=== PATIENT | female | born 1970 | race Caucasian/White ===

== ENCOUNTER 2024-05-31 17:53 | Emergency (ER) | payer OTHER, SELFPAY ==
--- NOTE | ~2024-05-31 | XR_ITS ---
EXAMINATION: XR chest 2V DATE: 05/31/2024 19:33 INDICATION: Cough and congestion. TECHNIQUE: Frontal and lateral views of the chest were obtained on 3 radiographs. COMPARISON: None. FINDINGS: There is no pneumonia, pleural effusion, or pneumothorax. The heart size is normal. Surgica l clips in the right upper quadrant are likely from cholecystectomy. There is mild chronic anterior w edging of a lower thoracic vertebral body. IMPRESSION: 1. No acute cardiopulmonary disease. Reviewed, dictated and finalized at location A. [facility] [employer]
--- OUTSIDE RECORDS SUMMARY | 2024-05-31 17:55 | XMS_ITS | Referral Summary ---
Author Organization [facility] Address [address] [place] [address] Care Team Providers Care Manager Mobile Name Role Phone Craig Becerra MD Primary Care Provider [phone] [facility],non-owned Affiliates and Associated Physician Practices is amultiple site organization consisting of ambulatory clinics and hospital sitesin [place], [place], [place] and [place]. This disclosure is being madepursuant to the Care Everywhere program and may not contain all information available regarding this patient. Last updated 18.[facility] Allergies No known active allergies Medications * Be aware that medications may not be up to date on this document. Alwaysverify current medications with the patient. Medication Sig Dispensed Refills Start Date End Date Status cefUROXime (CEFTIN) 250 MG tablet Take 1 tablet by mouth at bedtime 30 tablet 1 01/12/2019 Active imipramine (TOFRANIL) 10 MG tablet Take 1 tablet by mouth at bedtime Take 2 tablets every night at bedtime - please make an appt for future refills 60 tablet 09/01/2019 Active Active Problems Problem Noted Date Diagnosed Date ANIKET (stress urinary incontinence, female) 2018 Social History Tobacco Use Types Packs/Day Years Used Date Smoking Tobacco: Never Smokeless Tobacco: Never Alcohol Use Standard Drinks/Week Comments Not Currently 0 (1 standard drink = 0.6 oz pur e alcohol) Sex and Gender Information Value Date Recorded Sex Assigned at Not on file Gender Identity Not on file Sexual Orientation Not on file Last Filed Vital Signs Vital Sign Reading Time Taken Comments Blood Pressure 118/70 01/12/2019 10:51 AM CDT Pulse - - Temperature - - Respiratory Rate - - Oxygen Saturation - - Inhaled Oxygen Concentration - - Weight 103.4 kg (228 lb) 01/12/2019 10:51 AM CDT Height 163.8 cm (5' 4.5 ) 01/12/2019 10:51 AM CD T Body Mass Index 38.53 01/12/2019 10:51 AM CDT Plan of Treatment Not on file Care Teams Manager Mobile Relationship Specialty Start Date End Date Craig Becerra MD [address] [place] [id number] PCP - General 12/22/18
--- OUTSIDE RECORDS SUMMARY | 2024-05-31 17:55 | XMS_ITS | Clinical Summary ---
Author Organization [facility] Address [address] [place] [address] Care Team Providers Care Saddle Maker Name Role Phone Craig Becerra MD Primary Care Provider [phone] Source Comments [facility],non-owned Affiliates and Associated Physician Practices is amultiple site organization consisting of ambulatory clinics and hospital sitesin [place], [place], [place] and [place]. This disclosure is being madepursuant to the Care Everywhere program and may not contain all information available regarding this patient. Last updated 18.[employer] Allergies No known active allergies Medications * [...] Date ANIKET (stress urinary incontinence, female) 2018 Family History Medical History Relation Name Comments CAD (Coronary Artery Disease) Father Hypertension Father Hypertension Mother CAD (Coronary Artery Disease) Sister Diabetes - Type 2 Sister Hypertension Sister Relation Name Status Comments Father Mother Sister Social History Tobacco Use Types Packs/Day Years [...] 01/12/2019 10:51 AM CDT Plan of Treatment Health Maintenance Due Date Last Done Comments COLOGUARD (AGES 45-75) - COL ON CA SCREENING 1972 COLON MONITORING 1972 COLONOSCOPY - COLON CA SCREENING 1972 CT COLONOGRAPHY - COLON CA SCREENING 1972 Colorectal Cancer Screening 1972 FIT - COLON CA SCREENING 1972 FLEX SIG - COLON CA SCREENING 1972 LIPID TESTING 1972 MAMMOGRAM 1972 PAP SMEAR 1972 HIV SCREENING 10/26/1987 HEPATITIS C SCREENING 10/21/1990 DTAP/TDAP/TD VACCINES (1 - Tdap) 10/26/1991 HEPATITIS B VACCINE (1 of 3 - 19+ 3-dose series) 10/26/1991 PNEUMOCOCCAL VACCINE 50+ (1 of 1 - PCV) 2022 ZOSTER VACCINE (1 of 2) 2022 COVID-19 VACCINE (1 - 2023-2 5 season) 2024 INFLUENZA VACCINE (#1) 2024 DEPRESSION SCREENING 05/04/2024 HIB VACCINE Aged Out No longer eligi ble based on patient's age to complete this topic HPV VACCINE Aged Out No longer eligi ble based on patient's age to complete this topic MENINGOCOCCAL (Group B) VACCINE Aged Out No longer eligible based on patient's age to complete this topic MENINGOCOCCAL VACCINE Aged Out No zo kyle eligible based on patient's age to complete this topic PNEUMOCOCCAL VACCINE Aged Out No long er eligible based on patient's age to complete this topic Care Teams Saddle Maker Relationship Specialty Start Date End Date Craig Becerra MD [address] [place] [id number] PCP - General 12/22/18
--- OUTSIDE RECORDS SUMMARY | 2024-05-31 17:55 | XMS_ITS | Referral Summary ---
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 Patient Refused),05/05/2016(Deferred: Patient Refused) Pfizer SARS-CoV-2 Monovalent Vaccination (12+ Yrs) PURPLE 01/21/2021,12/30/2020 Social History Tobacco Use Types Packs/Day Years Used Date Smoking Tobacco: Never Smokeless Tobacco: Never Tobacco Cessation:Counseling Given: Not Answered Alcohol Use Standard Drinks/Week Comments Not Currently 0 (1 standard drink = 0.6 oz pur e alcohol) [facility] Quantum Answer Date Recorded In the past 12 months has [facility] [employer], or water [employer] threatened to shut off services in your home? No 07/24/2023 Humiliation, Afraid, Rape, and Kick questionnair e Answer Date Recorded Within the last year, have y ou been afraid of your partner or ex-partner? No 07/24/2023 Within the last year, have y ou been humiliated or emotionally abused in other ways by your partner or ex-partner? No Within the last year, have y ou been kicked, hit, slapped, or otherwise physically hurt by your partner or ex-partner? No 07/24/2023 Within the last year, have y ou been raped or forced to have any kind of sexual activity by your partner or ex-partner? No 07/24/2023 Social Connection and Isolat ion Panel [NHANES] Answer Date Recorded In a typical week, how many times do you talk on the phone with family, friends, or neighbors? More than three times a week 07/24/2023 How often do you get togethe r with friends or relatives? More than three times a week 07/24/2023 How often do you attend chur or orthodox services? Never 07/24/2023 Do you belong to any clubs o r organizations such as anabaptist groups, unions, [employer] or athletic groups, or school groups? No 07/24/2023 How often do you attend meet ings of the clubs or organizations you belong to? Never 07/24/2023 Are you , , di vorced, , never , or living with a partner? 07/24/2023 AUDIT-C Answer Date Recorded Q1: How often do you have a drink containing alc ohol? Monthly or less 07/24/2023 Q2: How many drinks containi ng alcohol do you have on a typical day when you are drinking? 1 or 2 07/24/2023 Q3: How often do you have si x or more drinks on one occasion? Never 07/24/2023 Overall Financial Resource Strain (CARDIA) Answe r Date Recorded How hard is it for you to pa y for the very basics like food, housing, medical care, and heating? Not hard at all 07/24/2023 PHQ-2 Answer Date Recorded PHQ-2 Total Score (If total score is 3 or more points, staff should administer the PHQ-9) 3 01/29/2024 [facility] - Occupational Stress Questionnaire Answer Date Recorded Do you feel stress - tense, restless, nervous, or anxious, or unable to sleep at night because your mind is troubled all the time - these days? Only a little 07/24/2023 Exercise Vital Sign Answer Date Recorde d On average, how many days pe r week do you engage in moderate to strenuous exercise (like a brisk walk)? 2 days 07/24/2023 On average, how many minutes do you engage in exercise at this level? 30 min 07/24/2023 Hunger Vital Sign Answer Date Recorded Within the past 12 months, y ou worried that your food would run out before you got the money to buy more. Never true 07/24/19 24 Within the past 12 months, t he food you bought just didn't last and you didn't have money to get more. Never true 07/24/2023 PRAPARE - Transportation Answer Date Re corded In the past 12 months, has l ack of transportation kept you from medical appointments or from getting medications? No 07/03 In the past 12 months, has l ack of transportation kept you from meetings, work, or from getting things needed for daily living? No 07/24/2023 Housing Stability Vital Sign Answer Colt e Recorded In the last 12 months, was t here a time when you were not able to pay the mortgage or rent on time? No 07/24/2023 In the last 12 months, how many places have you lived? 1 07/24/2023 In the last 12 months, was t here a time when you did not have a steady place to sleep or slept in a group home (including now)? 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 file Not on file Not on file Last Filed Vital Signs Vital Sign Reading Time Taken Comments Blood Pressure 128/78 01/29/2024 3:27 PM CDT Pulse 73 01/29/2024 3:27 PM CDT Temperature 36.8 ??C (98.2 ??F) 05/13/2023 3:45 PM CS T Respiratory Rate 18 01/29/2024 3:27 PM CDT Oxygen Saturation 98% 01/29/2024 3:27 PM CDT Inhaled Oxygen Concentration - - Weight 59.7 kg (131 lb 9.6 oz) 01/29/2024 3:27 P M CDT Height 162.6 cm (5' 4.02 ) 01/29/2024 3:27 PM CD T Body Mass Index 22.58 01/29/2024 3:27 PM CDT Plan of Treatment Not on file Medical Devices Implanted Type Area Mammography Technologist Device Identifier Shelf Expiration Date Model / Serial / Lot [employer] [id number] Tissuebutton 8mm 1mm Bioabsorbable Soft Tissue Button Fixation - [id number] Implanted:Qty: 1 on 05/20/2019 by Alex Myers IV, MD at [facility] Right: [employer] 12/01/2020 [id number]-[id number] / / [id number] Procedures Procedure Name Priority Date/Time Associated Diagnosis Comments SCREENING MAMMOGRAM BILATERAL W REX Schedule Routine, Read Routine (OP Routine) 11/23/2023 4:24 PM CDT Encounter for screening mammogram for malignant neoplasm of breast PAP AND HPV, REFLEX TO HPV GENOTYPES Routine 08/27/2023 3:59 PM CDT Encounter for gynecological examination with Papanicolaou smear of cervix from Last 3 Months or Most Recently Relevant to Health Maintenance Results * Screening Mammogram Bilateral W Rex (11/23/2023 4:24 PM CDT) Anatomical Region Laterality Modality Breast Bilateral Mammography Narrative 11/25/2023 7:02 AM CDT Mammogram Technique: Bilateral Digital Breast Tomosynthesis, Bilateral C-view 2D Screening mammogram. ??Views obtained: ??bilateral craniocaudal and bilateral mediolateral oblique. ??Computer Aided Detection was performed. Mammogram Findings: The present examination has been compared to a prior imaging study performed at [facility] on 12/26/2022. The breasts are heterogeneously dense, which may obscure small masses. There is a new focal asymmetry in the middle lower inner quadrant of the left breast located 5 centimeters from the nipple. There is no suspicious abnormality in the right breast. Impression: New focal asymmetry in the left breast requires additional evaluation. Diagnostic mammogram and possible ultrasound of the left breast are recommended at this time. OVERALL FINAL ASSESSMENT: BI-RADS CATEGORY 0: ??Incomplete: ??Need additional imaging evaluation. Procedure Note Gretta Isabel MD - 11/25/2023 Mammogram Technique: Bilateral Digital Breast Tomosynthesis, Bilateral C-view 2D Screening mammogram. Views obtained: bilateral craniocaudal and bilateral mediolateral oblique. Computer Aided Detection was performed. Mammogram Findings: The present examination has been compared to a prior imaging study performed at [facility] on 12/26/2022. The breasts are heterogeneously dense, which may obscure small masses. There is a new focal asymmetry in the middle lower inner quadrant of the left breast located 5 centimeters from the nipple. There is no suspicious abnormality in the right breast. Impression: New focal asymmetry in the left breast requires additional evaluation. Diagnostic mammogram and possible ultrasound of the left breast are recommended at this time. OVERALL FINAL ASSESSMENT: BI-RADS CATEGORY 0: Incomplete: Need additional imaging evaluation. us Josie Suarez NP IMG MAMMO PROCEDURES Final Resul t * Pap and HPV, reflex to HPV Genotypes (08/27/2023 3:59 PM CDT) Clinical indication Comment [facility] - 01 Comment:NEGATIVE FOR INTRAEP ITHELIAL LESION OR MALIGNANCY. Specimen adequacy: Comment [facility] - 01 Comment: Satisfactory for evaluation. ??Endocervical and/or squamous metaplastic cells (endocervical component) are present. Clinician provided ICD10 Comment [facility] - 01 Comment:Z01.419 Performed by Comment [facility] - 01 Comment:Jian Arceo, Cyto technologist (ASCP) . . [facility] - 01 Note: Comment [facility] - 01 Comment: The Pap smear is a screening test designed to aid in the detection of premalignant and malignant conditions of the uterine cervix. ??It is not a diagnostic procedure and should not be used as the sole means of detecting cervical cancer. ??Both false-positive and false-negative reports do occur. Test methodology Comment [facility] - 01 Comment: This liquid based ThinPrep(R) pap test was screened with the use of an image guided system. HPV Aptima Negative Negative [facility] 02 Comment: This nucleic acid amplification test detects fourteen high-risk HPV types (16,18,31,33,35,39,45,51,52,56,58,59,66,68) without differentiation. HPV Genotype Reflex Comment [facility] - 01 Comment:Criteria not met, HP V Genotype not performed. Thin prep 08/27/2023 3:59 PM CDT 08/28/2023 Narrative [facility] - 09/02/2023 10:12 AM CDT Performed at: ??01 - [facility] [address], [place] [id number] Ultrasound Spec: Lora Albert MD, Phone: ??[phone] Performed at: ??02 - [facility] [address], [place] ??[id number] Ultrasound Spec: Lora Albert MD, Phone: ??[phone] Specimen Comment: No. of containers..01 ThinPrep Vial us Josie Suarez NP LAB CYTOLOGY ORDERABLES Final Re sult [facility] - 01 [facility] 02 from Last 3 Months or Most Recently Relevant to Health Maintenance Insurance [facility]/PPO Address: [place] [address] [facility] CHOICE PLUS [facility] H[facility]/PPO Address: [facility] [address] [place] [address] Advance Directives For more information, please contact: [phone] * Full Code (Latest Code Status on File) Date Activated Date Inactivated Comments 05/20/2019 8:35 AM 05/20/2019 4:21 PM Care Teams Lot Worker Relationship Specialty Start Date End Date Craig Becerra MD [address] [place] [address] PCP - General Family Medicine 02/03/17
--- OUTSIDE RECORDS SUMMARY | 2024-05-31 17:55 | XMS_ITS | Patient Health Summary ---
Author Organization [facility] Address [address] [place] [address] Care Team Providers Care Interventional Radiologist Name Role Phone Craig Becerra MD Primary Care Provider [phone] Note from [facility],non-owned Affiliates and Associated Physician Practices is amultiple site organization consisting of ambulatory clinics and hospital sitesin [place], [place]. This disclosure is being madepursuant to the Care Everywhere program and may not contain all information available regarding this patient. Last updated 18.[facility] Allergies No known active allergies Medications * Be aware that medications may not be up to date on this document. Alwaysverify current medications with the patient. * cefUROXime (CEFTIN) 250 MG tablet(Started 01/12/2019) Take 1 tablet by mouth at bedtime 1 refill remaining * imipramine (TOFRANIL) 10 MG tablet(Started 09/01/2019) Take 1 tablet by mouth at bedtime Take 2 tablets every night at bedtime - please make an appt for future refills Active Problems Problem Noted Date Diagnosed Date [...] Mass Index 38.53 01/12/2019 10:51 AM CDT Procedures * MD COMPLEX CYSTOMETROGRAM(Performed 01/12/2019) Performed for ANIKET (stress urinary incontinence, female) * MD ELECTRO-UROFLOWMETRY, FIRST(Performed 01/12/2019) Performed for ANIKET (stress urinary incontinence, female) * MD CYSTOURETHROSCOPY(Performed 01/12/2019) Performed for Urinary incontinence, unspecified type Results * MD ELECTRO-UROFLOWMETRY, FIRST, MD COMPLEX CYSTOMETROGRAM (01/12/2019 5:27 PM CDT) Narrative Beth Christiansen MD - 01/12/2019 5:27 PM CDT Beth Christiansen MD ? 01/12/2019 ??5:30 PM Multichannel Urodynamic Testing - Procedure Note Pre-Operative Diagnosis: incontinence - inability to diagnose by history Post-Operative Diagnosis: urodynamic stress urinary incontinence Indications: Multichannel urodynamic testing is being performed to fully evaluate the patient's voiding dysfunction. The risks, benefits and alternatives have been discussed with emphasis on discomfort and urinary tract infections. Procedure Details: The patient's urethral meatus was cleaned with Betadine (used if not allergic to topical iodine, otherwise hibiclens was used). A 7 Fr. Single sensor air-charged catheter was place into the vagina or into the rectum if the pelvic prolapse required restitution for adequate testing. A 7 Fr. Dual sensor air-charged catheter was inserted into the urethra. During testing, the patient's prolapse was reduced with either procto-swabs, or digitally. Cystometrogram: The bladder was filled with room temperature water at a rate of 100 cc per minute. The patient tolerated this and she was found to have: First sensation (S1) at 80 cc. Sensation of fullness at 335 cc. Maximal cystometric capacity of 479 cc. She does have normal bladder compliance. She does not have loss of urine with a rise in detrusor pressure. Valsalva leak point pressure (VLPP): VLPP at 150 cc: [place] [facility] [place] and + with catheters Urethral pressure profilometry (UPP): Leakage amount: moderate Voiding study (VS): Volume voided: 537.9 Maximal flow rate: 83.3 Valsalva void: yes Assessment and Plan: [place] [facility] [place]. This does not fit exactly with her symptoms as she has rare ANIKET with cough and this is more dampness particularly at night. Talked about bulking and literature given vs trying some imipramine at night to increase urethral tone and if having some OAB which we did not detect on testing. If not work then bulking to see if it is related to her ANIKET> Pt happy with the escalating plan. Beth Christiansen MD PROCEDURE/MINOR SURG ICAL ORDERABLES * MD CYSTOURETHROSCOPY (01/12/2019 5:26 PM CDT) Narrative Beth Christiansen MD - 01/12/2019 5:26 PM CDT Beth Christiansen MD ? 01/12/2019 ??5:27 PM I performed a CYSTOSCOPY using a rigid 70 degree cystoscopy. The entire bladder was surveyed and there was no trauma to the bladder. The ureteral orifices were visualized and bilateral ejaculation was noted. The urethra was visualized and there was no trauma to the urethra. The bladder had evidence of old infection and some cystitis cystica. Dx - no sling erosion Evidence of ch infection - for ceftin prophylaxis for 6 weeks. Beth Christiansen MD PROCEDURE/MINOR SURG ICAL ORDERABLES Care Teams Interventional Radiologist Relationship Specialty Start Date End [place] [id number] PCP - General 12/22/18
--- OUTSIDE RECORDS SUMMARY | 2024-05-31 17:55 | XMS_ITS | Data Portability ---
Author Organization [facility] Address [address] [place] [address] Care Team Providers Care Interior Design Faculty Member Name Role Phone ASHLIE FIGUEROA Primary Care Provider [phone] Assessment Encounter Date Assessment Date Assessment LastModified by Organization Details LastModified Time 08/14/2021 08/14/2021 Annual gynecological exam performed. Patient will come back in a year unless there are new symptoms. Not available 08/14/2021 17:56:04 08/20/2022 08/20/2022 Annual gynecological exam performed. Patient will come back in a year unless there are new symptoms. Not available 08/20/2022 17:58:35 Plan of Treatment Reminders Order Date Submit Date Provider Last Modified By Organization Details Last Modified Time Details Appointments None record ed. Lab None record ed. Referral None record ed. Procedures None record ed. Surgeries None record ed. Imaging None record ed. Medication Orders None record ed. Patient TargetsNo targets recorded. Patient InstructionsNo instructions recorded. Reason for Referral None Reported. Results Created Date Observation Date Name Description Value Unit Range Abnormal Flag Note LastModifiedBy Organization Detail LastModifiedTime 08/15/19 22 08/14/2021 IMAGE GUIDE D PAP AND HPV REGAR DLESS image guided Pap, HPV regardless of Pap result SEE RESULT S BELOW CASE REPOR T: Cytol ogy Gynec ologi jenniffer Repor t Case: [id number] Autho rilily g Provi monae: Raman Joaquin MD Colle cted: 08/14 1752 Order ing Locat ion: [place] [facility] Recei jonatan: 08/16 0216 First Scree n: Adair Apple, CT Speci men: Scree isael Pap - Image d, Cervi x STATE MENT OF ADEQU ACY: Satis facto ry for evalu ation Trans forma tion zone compo nent prese nt FINAL DIAGN OSIS: Negat johnie for Intra epith elial Lesio n or Sana santoyo (NIL) . Shift in danyel sugge stive of bacte rial vagin osis. Elect thomas chau aviva d by Adair Apple, CT on 2021 at 10:43 AM ----- ----- ----- ----- ----- ----- ----- ----- ----- ----- ----- ----- ----- ----- ----- ----- ----- ---- HPV RESUL TS: HPV mRNA E6/E7 : No HPV mRNA Detec yfn NOTE: This high risk HPV mRNA assay detec ts fourt een high- risk HPV types (16, 18, 31, 33, 35, 39, 45, 51, 52, 56, 58, 59, 66, 68) witho ut diffe renti ation . COMME NT: Note: This speci men was revie wed by a Cytot echno logis t and/o r Patho logis t (as indic ated in this repor t) after evalu ation using the Thinp rep Imagi ng Syste m. CLINI JENNIFFER INFOR MATIO N: Menst rual Statu s: LMP (if appli cable ): Clini jenniffer Histo ry/Pr eviou s Pap: Type of Neopl conor (if appli cable ): Signi fican t Clini jenniffer Findi ngs: Other Histo ry: Hormo katerina (if appli cable ): PAP EDUCA BABS L NOTE: The Pap Test is a scree isael test with an inher ent false negat johnie rate. Liqui d-bas ed sampl ing may decre ase, but will not elimi chip, false negat johnie resul ts. A negat johnie resul t does not precl ude the prese nce and/o r devel opmen t of disea se, since the prese nce of abnor mal cells in the sampl e depen ds on the locat ion of the lesio n and sampl ing techn ique. Michell nued regul ar scree isael is the best metho d of татьяна arguello preve ntion . If repor yfn cytol ogic findi ng do not corre late with physi jenniffer and/o r histo rical findi ngs, furth er inves tigat ion is recom olaf d, as clini douglas gonzales nted. Not Available [facility] (Lab) [address], [place], [address], 08/23/2021 11:46:40 08/22/19 23 08/21/2022 IMAGE GUIDE D PAP AND HPV REGAR DLESS image guided Pap, HPV regardless of Pap result SEE RESULT S BELOW CASE REPOR T: Cytol ogy Gynec ologi jenniffer Repor t Case: [id number] Autho patience rudd Provi monae: Raman Joaquin MD Colle cted: 08/21 1244 Order ing Locat ion: [place] [facility] [place] Recei jonatan: 08/22 0048 First Scree n: Skyla Fish Speci men: Scresushil kirkland Pap - Image d, Cervi x STATE MENT OF ADEQU ACY: Satis facto ry for evalu ation Trans forma tion zone compo nent prese nt FINAL DIAGN OSIS: Negat johnie for Intra epith elial Lesio n or Sana santoyo (NIL) . Shift in danyel sugge stive of bacte rial vagin osis. Elect thomas chau aviva d by Skyla Fish ica on 2022 at 1:16 PM ----- ----- ----- ----- ----- ----- ----- ----- ----- ----- ----- ----- ----- ----- ----- ----- ----- ---- HPV RESUL TS: HPV mRNA E6/E7 : No HPV mRNA Detec yfn NOTE: This high risk HPV mRNA assay detec ts fourt een high- risk HPV types (16, 18, 31, 33, 35, 39, 45, 51, 52, 56, 58, 59, 66, 68) witho ut diffe renti ation . COMME NT: This speci men was revie wed by a Cytot echno logis t and/o r Patho logis t (as indic ated in this repor t) after evalu ation using the Thinp rep Imagi ng Syste m. CLINI JENNIFFER INFOR MATIO N: Menst rual Statu s: LMP (if appli cable ): Clini jenniffer Histo ry/Pr eviou s Pap: Type of Neopl conor (if appli cable ): Signi fican t Clini jenniffer Findi ngs: Other Histo ry: Hormo katerina (if appli cable ): PAP EDUCA BABS L NOTE: The Pap Test is a scree isael test with an inher ent false negat johnie rate. Liqui d-bas ed sampl ing may decre ase, but will not elimi chip, false negat johnie resul ts. A negat johnie resul t does not precl ude the prese nce and/o r devel opmen t of disea se, since the prese nce of abnor mal cells in the sampl e depen ds on the locat ion of the lesio n and sampl ing techn ique. Michell nued regul ar scree isael is the best metho d of cance r preve ntion . If repor yfn cytol ogic findi ng do not corre late with physi jenniffer and/o r histo rical findi ngs, furth er inves tigat ion is recom olaf d, as clini douglas gonzales nted. Not Available [facility] (Lab) [address], [place], [address], 08/25/2022 14:18:57 Result Notes None recorded. 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 16466038840 150582 Active 2017 Cervical low risk HPV DNA test positive; Practice ID: [id number] Not Available [facility] 0 16:50:04 Atypical squamous cells of undetermi lucie significa nce on cervical Papanicol aou smear 280582474 Active 2016 Atyp squam cell of undet signfc cyto smr crvx (ASC-US); Recorded Elsewhere : No Locati on: [facility] So urce: EHR Chron ic: N Practic e ID: [id number] Bill able Time: 08:30:00 AM Not Available [facility] 0 16:50:04 Atypical squamous cells on cervical Papanicol aou smear cannot exclude high grade squamous intraepit helial lesion 772047992 Active 2016 Atyp squam cell not excl hi grd intrepith lesn cyto smr crvx;Chau rded Elsewhere : No Locati on: [facility] So urce: EHR Chron ic: N Practic e ID: [id number] Bill able Time: 01:52:38 PM Not Available [facility] 0 16:50:04 Problem Notes None recorded. Procedures Surgical History Date Name Laterality Status Provider Name and Address Organization Details Recorded Time 2 Date of Last Pap Smear completed [facility] 08/20/2022 18:00:07 2 Date of Last Mammogram completed [facility] 08/14/2021 17:57:15 7 Colposcopy completed [facility] 08/14/2021 12:02:27 Other completed [facility] 08/14/2021 17:57:25 Orthopedic Surgery completed [facility] 08/14/2021 17:57:25 Imaging Results None recorded. Procedure Notes None recorded. Medical Equipment None Reported. Allergies No known drug allergies Medications Name Sig Start Date Stop Date Status Note LastModified by Organization Details LastModified Time amoxicill in 500 mg capsule TAKE 1 CAPSULE BY MOUTH TWICE A DAY FOR 10 DAYS 08/20 completed Not Available Not Available Not Available Mirena 21 mcg/24 hr (up to 8 years) 52 mg intrauter ine device 2017 active Prescrib ed Elsewher e: No Locat ion: [facility] odify By: [email or web address] Encount er DateTime : 04/14/20 04:00:00 PM Not Available Not Available Not Available venlafaxi ne ER 37.5 mg capsule,e xtended release 24 hr TAKE ONE CAPSULE BY MOUTH EVERY DAY 08/20 completed Not Available Not Available Not Available trazodone 50 mg tablet TAKE 1 TABLET BY MOUTH NIGHTLY NEEDED FOR SLEEP 08/20 completed Not Available Not Available Not Available sertralin e 100 mg tablet take 1 tablet by oral route every day 08/20 completed Prescrib ed Elsewher e: Yes Loca tion: [facility] odify By: ayaka z Encoun ter DateTime : 09/19/19 03:30:00 PM Not Available Not Available Not Available alprazola m 0.5 mg tablet take 1 tablet by oral route 3 times every day 08/20 completed Prescrib ed Elsewher e: Yes Loca tion: [facility] odify By: ayaka z Encoun ter DateTime : 09/19/19 03:30:00 PM Not Available Not Available Not Available Metrogel Vaginal 0.75 % (37.5 mg/5 gram) insert 1 applicat orful by vaginal route every day at bedtime for 5 nights 08/14 completed Prescrib ed Elsewher e: No Locat ion: [facility] odify By: [email or web address] n Encoun ter DateTime : 04/19/20 10:07:02 AM Not Available Not Available Not Available cephalexi n 500 mg capsule TAKE 1 CAPSULE BY MOUTH TWICE A DAY FOR 10 DAYS 08/20 completed Not Available Not Available Not Available lisinopri l 10 mg tablet TAKE 1 TABLET BY MOUTH EVERY DAY active Not Available Not Available No t Available fluoxetin e 10 mg capsule 08/20 completed Not Available Not Available Not Available [facility] Lisinopri l 10 mg tablet 08/20 completed Not Available Not Available Not Available furosemid e 20 mg tablet 08/20 completed Not Available Not Available Not Available zolpidem 10 mg tablet TAKE 1 TABLET BY MOUTH NIGHTLY NEEDED FOR SLEEP 08/20 completed Not Available Not Available Not Available metronida zole 0.75 % topical gel APPLY TO FACE 1-2 TIMES A DAY 08/20 completed Not Available Not Available Not Available eszopiclo ne 3 mg tablet TAKE 1 TABLET (3 MG TOTAL) BY MOUTH DAILY IMMEDIAT YUKI BEFORE BEDTIME 08/20 completed Not Available Not Available Not Available hydrochlo rothiazid e 12.5 mg tablet TAKE 1 TABLET BY ORAL ROUTE EVERY DAY 2016 active Prescrib ed Elsewher e: No Locat ion: [facility] odify By: torey arguello DateTime : 01/03/20 03:03:41 PM Not Available Not Available Not Available AMBI 10PEH-4CP M active Not Available Not Available Not Available Soolantra 1 % topical cream APPLY TOPICALL Y TO FACE TWICE A DAY active Not Available Not Available No t Available Mounjaro 7.5 mg/0.5 mL subcutane ous pen injector INJECT 7.5MG UNDER THE SKIN EVERY 7 DAYS (REQUIRI JANINE PA - BYPASS IF HAVE [facility]) 08/20 completed Not Available Not Available Not Available Mounjaro 5 mg/0.5 mL subcutane ous pen injector 08/20 completed Not Available Not Available Not Available Mounjaro 10 mg/0.5 mL subcutane ous pen injector INJECT 10 MG UNDER THE SKIN EVERY 7 DAYS active Not Available Not Available No t Available Mounjaro 2.5 mg/0.5 mL subcutane ous pen injector INJECT 2.5 MG UNDER THE SKIN EVERY 7 DAYS DAYS FOR 28 DAYS THEN 5 MG EVERY 7 DAYS FOR 28 DAYS 08/20 completed Not Available Not Available Not Available Vitals Date Recorded Body height Body mass index (BMI) Body weight Systolic blood pressure Diastolic blood pressure Provider Name and Address Organization Details Last Updated DateTime 08/14/2021 163.83 cm 38.4 kg/m2 326332.4 7 g 142 mm[Hg] 81 mm[Hg] [facility] 2 18:05:29 Date Recorded Body height Body mass index (BMI) Body weight Systolic blood pressure Diastolic blood pressure Provider Name and Address Organization Details Last Updated DateTime 08/20/2022 163.83 cm 25.3 kg/m2 89938.86 g 117 mm[Hg] 72 mm[Hg] [facility] 3 17:59:29 Social History Question Answer Notes LastModified by Organizat ion Details LastModified Time Do You Have An Advance Directive? No Information not available 08/14/2021 What Is Your Level Of Alcohol Consumption? Occasional Information not available 08/14/2021 Are You Blind Or Do You Have Difficulty Seeing? No Information not available 08/14/2021 What Is Your Level Of Caffeine Consumption? Occasional Information not available 08/14/2021 How Much Tobacco Do You Chew? None Information not available 08/14/2021 In The 14 Days Before Symptom Onset, Have You Had Close Contact With A Laboratory-confir med COVID-19 While That Case Was Ill? No Information not available 08/14/2021 In The 14 Days Before Symptom Onset, Have You Had Close Contact With A Person Who Is Under Investigation For COVID-19 While That Person Was Ill? No Information not available 08/14/2021 Have You Been To An Area Known To Be High Risk For COVID-19? No Information not available 08/14/2021 Are You Deaf Or Do You Have Serious Difficulty Hearing? No Information not available 08/14/2021 What Type Of Diet Are You Following? REGULAR Information not available 08/14/2021 What Is The Highest Grade Or Level Of School You Have Completed Or The Highest Degree You Have Received? 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 Yes Information not available 08/20/2022 Do You Use Protection During Sex? No Information not available 08/14/2021 Do You Use Your Seat Belt Or Car Seat Routinely? Yes Information not available 08/14/2021 Do You Have Smoke And Carbon Monoxide Detectors In Your Home? Yes Information not available 08/14/2021 How Much Tobacco Do You Smoke? No Information not available 08/14/2021 Do You Feel Stressed (tense, Restless, Nervous, Or Anxious, Or Unable To Sleep At Night)? [id number] Information not available 08/14/2021 Do You Use Any Illicit Or Recreational Drugs? No Information not available 08/14/2021 Do You Use Sunscreen Routinely? No Information not available 08/14/2021 Have You Used IV Drugs? No Information not available 08/14/2021 Sex: Unknown Functional Status Question Answer Note LastModified by Organization D etails LastModified Time Are you able to walk? YESWOREST Information not available 08/14/2021 What is your exercise level? Moderate Information not available 08/14/2021 Mental Status None recorded. Family History Relationship Description Onset Age of this Age Resolved Age Notes LastModified by Organization Details LastModified Time Father Heart disease Not available 2021 17:56:30 Paternal Aunt Malignant tumor of breast Not available 2021 17:56:30 Sister Diabetes mellitus Not available 2021 17:56:30 Medical History Condition Response Anxiety Disorder Y History of abnormal pap Y Headaches Y Depression/ depression Y Gynecological History Statement/Question Response Abnormal Pap Y Date of Last Mammogram 07/30/2021 Sexually Active? Y N STIs/STDs N HPV Vaccine N Colposcopy 10/01/2016 Date of Last Pap Smear 08/14/2021 Sexual Problems? N Current Control Method IUD Age at First Child 26 N Obstetrics History GPAL:G 2 P 1 1 0 2 Type Value Full Term 1 Premature 1 Living 2 Total 2 Past Encounters Encounter ID Performer Location Encounter Start Date Encounter Closed Date Diagnosis/Indication Diagnosis SNOMED-CT Code Diagnosis ICD10 Code Diagnosis Note [id number] Yuriy Joaquin MD [facility] [address] [address] 08/14/2021 17:50:31 08/14/2021 19:27:02 Gynecologic examination 91062822 Z01.419 This patient is here for her annual exam. A thorough history was taken. A physical exam was performed. Age appropriat e routine health screening was ordered, performed, and discussed. Recommende d testing was ordered. She was asked to follow up in one year. She will be informed of any test results. Mammogram - done Colonoscop y - declined at this time, discussed cologuard Bone Density - na Cholestero l - done Pap - today [id number] Yuriy Joaquin MD [facility] [address] [address] 08/20/2022 17:49:39 08/21/2022 10:11:38 Gynecologic examination 31402422 Z01.419 Z11.51 Annual gynecologi jenniffer exam performed. Patient will come back in a year unless there are new symptoms. Suggest Calcium with Vitamin D if not eating in diet. Patient advised to get annual flu shot. Recommend yearly physicals and preform monthly breast exams. Genetic testing is available for patients with family history of cancer. Engage in safe sexual practices, use condoms. Encouraged to have daily exercise. Avoid tobacco and illicit drugs, moderation of alcohol. If BMI greater than 25 dietary consult advised. If you have any questions please call or email. Mammogram - ordered Colonoscop y - scheduled Cholestero l - done Pap - today Health Concerns Section Related Observation LastModified by Organization Detai ls LastModified Time None Recorded Concern Status LastModified by Organization Details LastModified Time None Recorded Advance Directives Directive N: Payers Encounter Date Sequence Insurance Name Policy Number Policy Ace Covered Member ID Ace Member ID Guarantor Name 08/14/2021 1 [facility] [id number] Samantha R Dunia [id number] Smaantha R Dunia 08/20/2022 1 [employer] [id number] Samantha R Dunia [id number] Samantha Duque Notes Date Note Type Note Provider Name and Address Organization Details Recorded Time 08/14/2021 text/html Annual GYNReport ed bypatient.History: no gynecologic complaints Urinary symptoms:No hematuria; No incontinence Vulva:No genital lesion Vagina:Normal vaginal discharge Breast:No breast pain; No breast lump; No nipple discharge Current Contraception:Intr auterine device (iud) Sexual complaints:No sexual complaints; No pain during intercourse Menopausal Symptoms:No menopausal symptoms; Normal vaginal lubrication Psychological symptoms:Depressio n;Anxiety; treated, stable Preventive measures:Encourage self breast examination; Encourage regular exercise Yuriy Joaquin MD [address], [place], [address], [facility] 08/14/2021 19:26:25 08/20/2022 text/html Annual GYNReport ed bypatient.History: no gynecologic complaints Menstrual cycle:amenorrhea - IUD Urinary symptoms:No hematuria Vulva:No genital lesion Vagina:rare Breast:No breast pain; No breast lump Current Contraception:Sati sfied with current contraception; Intrauterine device (iud) Sexual complaints:No sexual complaints Menopausal Symptoms:No menopausal symptoms Psychological symptoms:Depressio n;Anxiety; txed Preventive measures:Encourage self breast examination; Encourage regular exercise Yuriy Joaquin MD [address], [place], [address], [facility] 08/20/2022 18:43:10 OBGyn Episode Ob Episode Information Episode Created Date Number of Fetuses Patient Bloodtype Patient rh Status Prepregnancy Weight lbs Domestic Partner Domestic Partner Phone Father Name Christian Education Director Status 08/15/19 22 1 CLOSED Fetus Data First Name Last Name Admitted to NICU Weight (g) Sex Living Outcome Pediatric Complications Fetus ID Race Codes Race Delivery Type [id number] F Full Term [id number] Vaginal Delivery Gamaliel Calculation Initial Gamaliel Date Initial Exam Date Initial Exam Provider Initial Ultrasound Date Last Menstrual Period Date Ultra Sound Weeks Gestation 0 Eighteen To Twenty Week Gamaliel Update Ultra Sound Date Fundal Height At Umbil Quickening Date Ultra Sound Latest Weeks Gestation Final Gamaliel Confirmed By Final Gamaliel Confirmed Date Final Gamaliel Date Ultra Sound Latest Days Gestation 0 0 Menstrual History Last Menstrual Date Menses Monthly On Bcp Conception Prior Menses Frequency Hcg Plus Date Menarche Onset Age Delivery Information Delivery Date Delivery Type Labor Anesthesia Weeks Gestation Incision Type Labor Labor Length Hrs Delivered By Post Complications Tubal Sterilization Discharge Date Comments 7 38 Jannie Discharge Information Feeding Method Contraceptive Method Maternal HG B and HCT Levels Ob Episode Information Episode Created Date Number of Fetuses Patient Bloodtype Patient rh Status Prepregnancy Weight lbs Domestic Partner Domestic Partner Phone Father Name Christian Education Director Status 08/15/19 22 1 CLOSED Fetus Data First Name Last Name Admitted to NICU Weight (g) Sex Living Outcome Pediatric Complications Fetus ID Race Codes Race Delivery Type [phone] [phone] F Prematur e [id number] Vaginal Delivery Gamaliel Calculation Initial Gamaliel Date Initial Exam Date Initial Exam Provider Initial Ultrasound Date Last Menstrual Period Date Ultra Sound Weeks Gestation 0 Eighteen To Twenty Week Gamaliel Update Ultra Sound Date Fundal Height At Umbil Quickening Date Ultra Sound Latest Weeks Gestation Final Gamaliel Confirmed By Final Gamaliel Confirmed Date Final Gamaliel Date Ultra Sound Latest Days Gestation 0 0 Menstrual History Last Menstrual Date Menses Monthly On Bcp Conception Prior Menses Frequency Hcg Plus Date Menarche Onset Age Delivery Information Delivery Date Delivery Type Labor Anesthesia Weeks Gestation Incision Type Labor Labor Length Hrs Delivered By Post Complications Tubal Sterilization Discharge Date Comments 0 36 Chelsey Discharge Information Feeding Method Contraceptive Method Maternal HG B and HCT Levels
--- OUTSIDE RECORDS SUMMARY | 2024-05-31 17:55 | XMS_ITS | Clinical Summary ---
Author Organization [facility] Address [address] [place] [address] Phone Care Team Providers Care Hospital Unit Clerk Name Role Phone Craig Becerra MD Primary Care Provider [phone] Allergies No known active allergies Medications lisinopril (PRINIVIL, ZESTRIL) 5 MG Tablet Take 1 Tablet by mouth daily. 90 Tablet 4 Active ondansetron (ZOFRAN-ODT) 4 MG TABLET DISPERSIBLE Take 1 Tablet by mouth every 6 hours as needed for Nausea - 1st line. 10 Tablet 4 Active polyethylene glycol (GLYCOLAX, MIRALAX) 17 g PackIndications :Constipation Take 1 Packet by mouth 2 times daily as needed for Constipation - 1st line. Dissolve in 4-8 oz of liquid. Indications: Constipation 90 Packet 4 Active senna (SENOKOT) 8.6 MG Tablet Take 1 Tablet by mouth 2 times daily as needed for Constipation - 2nd line. 30 Tablet 4 Active buPROPion SR (WELLBUTRIN SR) 150 MG TABLET SR 12 HR Take 150 mg by mouth 2 times daily. Active zolpidem (AMBIEN) 10 MG Tablet Take 10 mg by mouth nightly as needed for Sleep. Active tirzepatide-julia ght management (Zepbound) 10 MG/0.5ML Solution Auto-injector 10 mg by Subcutaneous route once a week. Active Active Problems Problem Noted Date Diagnosed Date Chest pain 07/15/2023 DM (diabetes mellitus), type 2 07/15/2023 Hypertension 07/15/2023 Social History Tobacco Use Types Packs/Day Years Used Date Smoking Tobacco: Never Alcohol Use Standard Drinks/Week Comments No 0 (1 standard drink = 0.6 oz pur e alcohol) [facility] Utilities Answer Date Recorded In the past 12 months has th e electric, gas, oil, or water company threatened to shut off services in your home? Patient declined 07/15/2023 Social Connection and Isolation Panel [NHANES] A nswer Date Recorded In a typical week, how many times do you talk on the phone with family, friends, or neighbors? Patient declined 07/15/2023 How often do you get togethe r with friends or relatives? Patient declined 07/15/2023 How often do you attend religious or hoahaoism serv ices? Patient declined 07/15/2023 Do you belong to any clubs o r organizations such as religious groups, unions, fraternal or athletic groups, or school groups? Patient declined 07/15/2023 How often do you attend meet ings of the clubs or organizations you belong to? Patient declined 07/15/2023 Are you , , di vorced, , never , or living with a partner? Patient declined 07/15/2023 AUDIT-C Answer Date Recorded Q1: How often do you have a drink containing alc ohol? Patient declined 07/15/2023 Q2: How many drinks containi ng alcohol do you have on a typical day when you are drinking? Patient declined 07/15/2023 Q3: How often do you have si x or more drinks on one occasion? Patient declined 07/15/2023 Overall Financial Resource Strain (CARDIA) Answe r Date Recorded How hard is it for you to pa y for the very basics like food, housing, medical care, and heating? Patient declined 07/15/2023 [facility] of Occupat ional Health - Occupational Stress Questionnaire Answer Date Recorded Do you feel stress - tense, restless, nervous, or anxious, or unable to sleep at night because your mind is troubled all the time - these days? Patient declined 07/15/2023 Exercise Vital Sign Answer Date Recorde d On average, how many days pe r week do you engage in moderate to strenuous exercise (like a brisk walk)? Patient declined On average, how many minutes do you engage in exercise at this level? Patient declined 07/15/2023 Hunger Vital Sign Answer Date Recorded Within the past 12 months, y ou worried that your food would run out before you got the money to buy more. Patient declined Within the past 12 months, t he food you bought just didn't last and you didn't have money to get more. Patient declined PRAPARE - Transportation Answer Date Re corded In the past 12 months, has l ack of transportation kept you from medical appointments or from getting medications? Patient declined 07/15/2023 In the past 12 months, has l ack of transportation kept you from meetings, work, or from getting things needed for daily living? Patient declined 07/15/2023 Housing Stability Vital Sign Answer Colt e Recorded In the last 12 months, was t here a time when you were not able to pay the mortgage or rent on time? Patient declined 07/15/19 24 In the last 12 months, how many places have you lived? 1 07/15/2023 In the last 12 months, was t here a time when you did not have a steady place to sleep or slept in a group home (including now)? Patient declined 07/15/2023 Comments No Sex and Gender Information Value Date Recorded Sex Assigned at Not on file Legal Sex Female 1:55 PM CDT Gender Identity Not on file Sexual Orientation Not on file Last Filed Vital Signs Vital Sign Reading Time Taken Comments Blood Pressure 111/76 07/16/2023 2:00 PM CDT Pulse 88 07/16/2023 2:00 PM CDT Temperature 36.5 ??C (97.7 ??F) 07/16/2023 2:00 PM CD T Respiratory Rate 18 07/16/2023 2:00 PM CDT Oxygen Saturation 100% 07/16/2023 2:00 PM CDT Inhaled Oxygen Concentration - - Weight 58.1 kg (128 lb) 07/16/2023 10:57 AM CDT Height 162.6 cm (5' 4 ) 07/16/2023 10:57 AM CDT Body Mass Index 21.97 07/16/2023 10:57 AM CDT Plan of Treatment Health Maintenance Due Date Last Done Comments Diabetes: Eye Exam 1972 Diabetes: Foot Exam 1972 Hepatitis C Virus (HCV) Screening 1972 TdaP Immunization 1972 Hepatitis B Immunization (1 of 3 - 19+ 3-dose series) 10/26/1991 Pneumococcal Immunization (5 0+ years) (1 of 2 - PCV) 10/26/1991 Pap Smear 1993 Cervical Cancer Screening (CCS) 2002 HPV/Cotest 2002 Colonoscopy 2017 Colorectal Cancer Screening 2017 Cologuard 2022 Immunochemical Fecal Occult Blood 2022 Zoster Immunization (1 of 2) 2022 Influenza Immunization (#1) 2024 SARS-COV-2 Immunization ( - 2023- season) 2024 01/21/2021, 12/30/2020 Diabetes: Hemoglobin A1c 01/15/2024 07/15/2023 Diabetes: Nephropathy Screening 07/14/2024 07/15/2023, 01/16/2016 Mammogram 11/19/2024 11/19/2022, 07/30/2021, 04/04/2020 Respiratory Syncytial Virus (RSV) Immunization (Adult) (1 - 1-dose 75+ series) 10/26/2047 Discussion re Starting/Frequency of Mammograms Discontinued 11/19/2022, 07/30/2021, 04/04/2020 Meningococcal Immunization (ACWY) Aged Out No longer eligible based on patient's age to complete this topic Rotavirus Immunization Aged Out No lo nger eligible based on patient's age to complete this topic Procedures Procedure Name Priority Date/Time Associated Diagnosis Comments CMP (COMPREHENSIVE METABOLIC PANEL) STAT 07/15/2023 9:15 AM CDT HEMOGLOBIN A1C W/ ESTIMATED GLUCOSE Routine 07/15/2023 9:15 AM CDT from Last 3 Months or Most Recently Relevant to Health Maintenance Results * Hemoglobin A1C w/ Estimated Glucose (07/15/2023 9:15 AM CDT) HGB-A1C 5.1 4.0 - 6.0 % 07/15/2023 4:05 PM CDT [facility] Est Average Glucose 99.7 mg/dL 07/15/2023 4:05 PM CDT [facility] Blood Venipuncture / Unknown 07/15/2023 9:15 AM CDT 07/15/2023 10:00 AM CDT Narrative [facility] - 07/15/2023 4:05 PM CDT HEMOGLOBIN A1C: DIABETIC PATIENTS: WELL-CONTROLLED: ?? 6.2 - 7.0 INTERMEDIATE WELL-CONTROLLED: ??7.0 - 9.0 POORLY-CONTROLLED: ??>9.0 us Sulaiman Grande MD CHEMISTRY ORDERABLES Fin al Result [facility] [address] [place] [address] * (ABNORMAL) CMP (Comprehensive Metabolic Panel) (07/15/2023 9:15 AM CDT) SODIUM 140 136 - 145 mmol/L 07/15/2023 10:26 AM CDT [facility] POTASSIUM 3.8 3.5 - 5.1 mmol/L 07/15/2023 10:26 AM CDT [facility] CHLORIDE 109(H) 98 - 107 mmol/L 07/15/2023 10:26 AM CDT [facility] CO2, VENOUS 24 22 - 30 mmol/L 07/15/2023 10:26 AM CDT [facility] ANION GAP 10.8 <18.0 mmol/L 07/15/2023 10:26 AM CDT [facility] GLUCOSE 85 70 - 99 mg/dL 07/15/2023 10:26 AM CDT [facility] BUN 8(L) 10 - 20 mg/dL 07/15/2023 10:26 AM CDT [facility] CREATININE, BLOOD 0.70 0.60 - 1.00 mg/dL 07/15/2023 10:26 AM CDT [facility] BUN/CREATININE RATIO 11(L) 12 - 20 ratio 07/15/2023 10:26 AM T [facility] TOTAL PROTEIN 6.5 6.3 - 8.2 g/dL 07/15/2023 10:26 AM [facility] ALBUMIN 3.8 3.5 - 5.0 g/dL 07/15/2023 10:26 AM [facility] A/G RATIO 1.4 1.0 - 2.2 07/15/2023 10:26 AM T [facility] CALCIUM 8.4(L) 8.7 - 10.5 mg/dL 07/15/2023 10:26 AM T [facility] T BILI 1.1 0.2 - 1.2 mg/dL 07/15/2023 10:26 AM [facility] SGOT (AST) 11 5 - 34 U/L 07/15/2023 10:26 AM [facility] SGPT (ALT) 14 0 - 55 U/L 07/15/2023 10:26 AM [facility] ALKALINE PHOSPHATASE 34(L) 40 - 150 U/L 07/15/2023 10:26 AM [facility] GFR, ESTIMATED >60 >=60 07/15/2023 10:26 AM [facility] Comment: Creatinine Clearance is the preferred criteria for selecting drug dose adjustments in renally impaired patients. ??The GFR is provided as additional pertinent clinical information. GFR is reported in mL/min/1.73 sq m. Calculation based on the Chronic Kidney Disease Epidemiology Collaboration (CKD- EPI) equation refit without adjustment for race. GFR, EST. >60 >=60 024 10:26 AM [facility] GFR, EST. NONAFRICAN >60 >=60 07/15/2023 10:26 AM [facility] Blood Venipuncture / Unknown 07/15/2023 9:15 AM T 07/15/2023 10:00 AM CDT us Hi Huitron DO CHEMISTRY ORDERABLES Fi nal Result [facility] [address] [place] [address] from Last 3 Months or Most Recently Relevant to Health Maintenance Insurance [facility] Advance Directives * Full Code (Latest Code Status on File) Date Activated Date Inactivated Comments 07/15/2023 12:49 PM 07/16/2023 5:52 PM CPR-Full Tr eatment: FULL ARREST: Attempt Resuscitation/CPR wit intubation and mechanical ventilation. PRE-ARREST: Use entire range of life support measures to stabilize the patient. Care Teams Hospital Unit Clerk Relationship Specialty Start Date End Date [place] [address] PCP - General Internal Medicine 04/07/18
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
[2024-05-31 18:08] VITALS: BP 119/83; PULSE 70; RESP 18; TEMP 37; O2SAT 100
--- NOTE | 2024-05-31 19:25 | ED_ITS ---
HPI - General Adult General Chief complaint: Upper Respiratory Infection Stated complaint: Cough Source: patient Mode of arrival: ambulatory Limitations: no limitations History of Present Illness HPI narrative: Patient presents for evaluation of a cough for the last 3 days. Cough is nonproductive. Her throat feels sore secondary to coughing. She denies any fever, chills, nausea, vomiting shortness of breath, diarrhea. Her mother recently had pneumonia. She is taking DayQuil and NyQuil without improvement in her symptoms. She does not smoke. Related Data Home Medications ?Medication ?Instructions ?Recorded ?Confirmed ?Last Taken ?Type metformin 500 mg tablet mg 05/31/24 Unknown History Allergies Allergy/AdvReac Type Severity Reaction Status Date / Time No Known Allergies Allergy Unverified 05/03/18 13:39 Review of Systems Review of Systems: CONSTITUTIONAL: Denies fever, chills, or sweats. EYES: Denies visual changes, redness, or discharge. ENT: Reports sore throat secondary to coughing. Denies sore throat otherwise. Denies rhinorrhea, congestion, or otalgia. CARDIOVASCULAR: Denies chest pain, palpitations, or edema. RESPIRATORY: Reports cough. Denies shortness of breath. GASTROINTESTINAL: Denies abdominal pain, nausea, vomiting, or diarrhea. GENITOURINARY: Denies dysuria or hematuria. SKIN: Denies rash or itching. MUSCULOSKELETAL: Denies back pain, joint pain, or myalgia. NEUROLOGIC: Denies headache, numbness, dizziness, or weakness. PSYCHIATRIC: Denies anxiety or depression. PMFSH Past Medical History Medical History No pertinent past medical history Surgical History Surgical History History of cholecystectomy Family History Family History Father Family history non-contributory Social History Social History Substance use: never Living arrangements: with family Gender identity (if verbalized by the patient): Female Spiritual care concerns: No Exam Narrative: GENERAL: Well-appearing, well-nourished, and in no acute distress. HEAD: Normocephalic, atraumatic. EYES: PERRLA and EOMI. ENT: Nares clear, no rhinorrhea or epistaxis. Mucous membranes moist. Posterior pharyngeal erythema. Oropharynx without tonsillar hypertrophy exudate or other lesions. Bilateral TMs pearly sharpe nonbulging NECK: Supple. No adenopathy or masses. No carotid bruits or JVD CHEST: Clear to auscultation. No respiratory distress. No wheezes rales or rhonchi HEART: Regular rate and rhythm. No murmur heard. Normal peripheral pulses. ABDOMEN: Soft, nontender, nondistended, normal active bowel sounds. EXTREMITIES: Normal range of motion. No edema. SKIN: Warm, dry, no rash. NEURO: No focal deficits. Alert and oriented x3. PSYCH: Normal mood and affect. Course Course Emergency Course: This is a 53-year-old female who presented for evaluation of sick symptoms. She declined COVID, flu, strep testing. Chest x-ray was normal. We have seen pneumonia in the community in young healthy individuals after being exposed to others with pneumonia. Given this, patient I elected to move forward with antibiotic therapy. Will discharge with Tessalon azithromycin and Augmentin. Increase hydration. [id number] agents for symptom management. Follow up with primary provider. Go to the ER for worsening symptoms. Patient in agreement with plan of care. Level of Care: Express Care Visit Vital Signs Vital signs: Vital Signs Temperature 37.0 C 05/31/24 18:08 Pulse Rate 70 05/31/24 18:08 Respiratory Rate 18 05/31/24 18:08 Blood Pressure 119/83 05/31/24 18:08 Pulse Oximetry 100 05/31/24 18:08 Oxygen Delivery Room Air 05/31/24 18:08 Temperature 37.0 C 05/31/24 18:08 Pulse Rate 70 05/31/24 18:08 Respiratory Rate 18 05/31/24 18:08 Blood Pressure 119/83 05/31/24 18:08 Pulse Oximetry 100 05/31/24 18:08 Oxygen Delivery Room Air 05/31/24 18:08 Medical Decision Making Vital Signs Vital Signs: Vital Signs Temperature 37.0 C 05/31/24 18:08 Pulse Rate 70 05/31/24 18:08 Respiratory Rate 18 05/31/24 18:08 Blood Pressure 119/83 05/31/24 18:08 Pulse Oximetry 100 05/31/24 18:08 Oxygen Delivery Room Air 05/31/24 18:08 Temperature 37.0 C 05/31/24 18:08 Pulse Rate 70 05/31/24 18:08 Respiratory Rate 18 05/31/24 18:08 Blood Pressure 119/83 05/31/24 18:08 Pulse Oximetry 100 05/31/24 18:08 Oxygen Delivery Room Air 05/31/24 18:08 Imaging Data Radiologist's impression: EXAMINATION: XR chest 2V DATE: 05/31/2024 19:33 INDICATION: Cough and congestion. TECHNIQUE: Frontal and lateral views of the chest were obtained on 3 r adiographs. COMPARISON: None. FINDINGS: There is no pneumonia, pleural effusion, or pneumothorax. The heart size is normal. Surgical clips in the right upper quadrant are likely from cholecystectomy. There is mild chronic anterior wedging of a lower thoracic vertebral body. IMPRESSION: 1. No acute cardiopulmonary disease. Discharge Plan Discharge Clinical Impression: At high risk for pneumonia Patient Disposition: Home, Self-Care Condition: Stable Instructions: Antibiotic Form, Acute Cough (ED) Patient Language: [place] Prescriptions: New amoxicillin-pot clavulanate 875-125 mg tablet 1 tablet PO Q12H Qty: 20 0RF azithromycin 250 mg tablet See Rx Instructions .ROUTE .COMPLEX Qty: 6 0RF Rx Instructions: For 250 mg dose pack: take 500 mg today (day 1), then 250 mg for 4 days (days 2-5) benzonatate 100 mg capsule 100 - 200 mg PO BID PRN (Reason: cough) Qty: 20 0RF No Action metformin 500 mg tablet Follow-up/Referrals: Harms,Craig Gerber M.D. [Primary Care Provider] - Time of Disposition: 19:52
== END 2024-05-31 19:57 | disposition home or self-care (01) ==
PROVIDERS: Emergency Provider Nurse Practitioner; PCP Family Medicine
DX: R05.9 Cough, unspecified (principal)
CPT/HCPCS: 71046; 99203; G0463